=== PATIENT | female | born 1990 | race Hispanic/Latino ===

== ENCOUNTER 2020-10-22 04:01 | Day surgery (SDC) | payer OTHER ==
[2020-10-22] MEDS ORDERED: hydrALAZINE 20 MG/ML VIAL SLOW IVP PRN (06:04)
== END 2020-10-22 08:07 | disposition home or self-care (01) ==
LOC: CSHLD/OP 04:01
PROVIDERS: ATTEND Obstetrics & Gynecology
DX: O47.1 False labor at or after 37 completed weeks of gestation (principal); O48.0 Post-term pregnancy; Z3A.40 40 weeks gestation of pregnancy
CPT/HCPCS: 99283

== ENCOUNTER 2020-10-22 17:01 | Inpatient (IN) | payer OTHER ==
[2020-10-22] MEDS ORDERED: hydrALAZINE 20 MG/ML VIAL SLOW IVP PRN (17:39)
[2020-10-22] MEDS ORDERED: Lidocaine 1% (PF) 30 ML VIAL SC PRN (17:39)
[2020-10-22] MEDS ORDERED: Misoprostol 200 MCG TAB PR PRN (17:39)
[2020-10-22] MEDS ORDERED: Carboprost 250 MCG/ML AMP IM PRN (17:39)
[2020-10-22] MEDS ORDERED: Ibuprofen 800 MG TAB PO PRN (17:39)
[2020-10-22] MEDS ORDERED: Ondansetron PF 4 MG/2 ML Vial IVP PRN ×2 (17:39→20:08)
[2020-10-22] MEDS ORDERED: Promethazine HCl 25 MG/ML VIAL IM PRN ×2 (17:39→20:08)
[2020-10-22] MEDS ORDERED: Methylergonovine 0.2 MG/ML VIAL IM PRN (17:39)
[2020-10-22 18:04] LABS: Hemoglobin 12.5 g/dL (12.0-15.5); Mean Corpuscular HGB CONC 33.5 g/dL (32.0-36.0); Mean Corpuscular Volume 89.4 fl (81.6-98.3); Mean Platelet Volume 10.1 fl (7.4-10.4); Platelet Count 201 10x3/uL (150-450); RBC Distribution Width 12.6 % (11.5-14.5); Red Blood Cell (RBC) Count 4.17 10x6/uL (3.90-5.03); White Blood Cell (WBC) Count 12.6 10x3/uL (3.5-10.5)
[2020-10-22] MEDS ORDERED: NS w/ Oxytocin 30 units 500 ML IV PRN (18:04)
[2020-10-22 18:32] VITALS: BMI 29.2
[2020-10-22 18:35] LABS: Hep B Surf Ag Non-Reactive S/CO (NonReactive)
[2020-10-22 18:36] LABS: Syphilis Antibody Nonreactive (Nonreactive); Syphilis Antibody Index 0.08 S/CO (<1.00 Non-Reactive)
[2020-10-22 18:38] LABS: HBSAg Index 0.17 S/CO (0-0.99)
[2020-10-22] MEDS: Lactated Ringer's 1,000 ML IV SCH ×2 (19:15→20:56)
[2020-10-22] MEDS ORDERED: Fentanyl 4 mcg/Bup 0.1% Cadd 100 ML ONE (19:55)
[2020-10-22] MEDS ORDERED: Naloxone HCl 0.4 mg/ml Vial IVP PRN ×2 (20:08)
[2020-10-22] MEDS ORDERED: ePHEDrine 50 MG/ML VIAL SLOW IVP PRN (20:08)
[2020-10-22] MEDS ORDERED: Acetaminophen 325 MG TAB PO PRN (20:08)
[2020-10-22] MEDS ORDERED: diphenhydrAMINE 50 MG/ML VIAL IVP PRN (20:08)
[2020-10-22] MEDS ORDERED: Lactated Ringer's 500 ML IV PRN (20:08)
[2020-10-22] MEDS ORDERED: Fentanyl 4 mcg/Bupivacaine 0.1% Cassette 100 ML EPIDURAL SCH (20:15)
[2020-10-22] MEDS ORDERED: Communication Order-Pharmacy FS SCH (20:15)
[2020-10-23] MEDS: NS w/ Oxytocin 30 units 500 ML IVPB SCH ×2 (03:08→04:04)
[2020-10-23] MEDS ORDERED: Lanolin Ointment 7 GM TUBE TOP PRN (05:40)
[2020-10-23] MEDS ORDERED: hydrALAZINE 20 MG/ML VIAL SLOW IVP PRN (05:40)
[2020-10-23] MEDS ORDERED: Adacel (T-DAP) 0.5 ML SYRINGE IM ONE (05:40)
[2020-10-23] MEDS ORDERED: Misoprostol 200 MCG TAB VAG PRN (05:40)
[2020-10-23] MEDS ORDERED: Bisacodyl 10 MG SUPP PR PRN (05:40)
[2020-10-23] MEDS ORDERED: Methylergonovine 0.2 MG/ML VIAL IM PRN (05:40)
[2020-10-23] MEDS ORDERED: Ondansetron PF 4 MG/2 ML Vial IVP PRN (05:40)
[2020-10-23] MEDS ORDERED: HYDROcodone/Acetaminophen 5/325 mg Tablet PO PRN ×2 (05:40)
[2020-10-23] MEDS ORDERED: Benzocaine-Menthol 82.5 ML CAN TOP PRN (05:40)
[2020-10-23] MEDS ORDERED: Milk Of Magnesia 30 ML UDCUP PO PRN (05:40)
[2020-10-23] MEDS ORDERED: Acetaminophen 500 MG TAB PO PRN (05:40)
[2020-10-23] MEDS ORDERED: NS w/ Oxytocin 30 units 500 ML IVPB SCH (06:15)
[2020-10-23] MEDS: Ferrous Sulfate 325 MG TAB PO SCH ×2 (08:19→17:44)
[2020-10-23] MEDS: Ibuprofen 800 MG TAB PO SCH ×3 (09:01→23:42)
[2020-10-23] MEDS: Docusate Calcium (SURFAK) 240 MG CAP PO SCH ×2 (09:02→23:47)
[2020-10-23] MEDS: Prenatal Vitamin 1 TAB PO SCH (09:03)
[2020-10-23 14:23] LABS: SARS-CoV-2 PCR by NAA Not Detected (NotDetected)
[2020-10-24] MEDS: Ibuprofen 800 MG TAB PO SCH ×3 (06:40→22:30)
[2020-10-24] MEDS: Prenatal Vitamin 1 TAB PO SCH (08:21)
[2020-10-24] MEDS: Docusate Calcium (SURFAK) 240 MG CAP PO SCH ×2 (08:21→22:32)
[2020-10-24] MEDS: Ferrous Sulfate 325 MG TAB PO SCH ×2 (08:22→18:58)
[2020-10-24] MEDS ORDERED: Bupivacaine 0.25% HCL 30 ML VIAL ONE (19:22)
[2020-10-25 03:01] VITALS: BP 112/68
[2020-10-25 05:58] VITALS: TEMP 98.3
[2020-10-25] MEDS: Ibuprofen 800 MG TAB PO SCH (07:18)
[2020-10-25] MEDS: Prenatal Vitamin 1 TAB PO SCH (09:41)
[2020-10-25] MEDS: Docusate Calcium (SURFAK) 240 MG CAP PO SCH (09:41)
[2020-10-25] MEDS: Ferrous Sulfate 325 MG TAB PO SCH (09:42)
== END 2020-10-25 11:30 | disposition home or self-care (01) | DRG 807 ==
LOC: CSHLD/OP 17:01 → CSHLD 19:19 → CSHPP 10-23 05:55
PROVIDERS: ADMIT Obstetrics & Gynecology; ATTEND Obstetrics & Gynecology
PROC: 10E0XZZ Delivery of Products of Conception, External Approach (ICD-10-PCS; principal; 2020-10-24)
DX: O80 Encounter for full-term uncomplicated delivery (principal); Z37.0 Single live birth; Z3A.40 40 weeks gestation of pregnancy; Z20.822 Contact with and (suspected) exposure to COVID-19
CPT/HCPCS: 36415; 51702; 85027; 86780; 86850; 86900; 86901; 87340; 87635; 99285; J2590; S0020; U0003; U0005